=== PATIENT | female | born 1940 | race Caucasian/White ===

== ENCOUNTER 2017-05-10 13:28 | Outpatient (CLI) | payer MEDICARE, OTHER | END 2017-05-10 13:29 | disposition home or self-care (01) | DRG 556 | LOC: CONVCARE 13:28 | PROVIDERS: ATTEND Orthopaedic Surgery | DX: M79.645 Pain in left finger(s) (principal); M19.90 Unspecified osteoarthritis, unspecified site | CPT/HCPCS: 73140 ==